=== PATIENT | male | born 1950 | race Caucasian/White ===

== ENCOUNTER 2021-01-02 20:53 | Emergency (ER) | payer MEDICARE ==
[2021-01-02] MEDS ORDERED: Bacitracin Oint 1 GM U/D Packet TOP ONE (21:05)
--- NOTE | 2021-01-02 21:35 | EDM.PDOC ---
ED HPI GENERAL MEDICAL PROBLEM - General Chief Complaint: Upper Extremity Injury/Pain Stated Complaint: FISH HOOK Time Seen by Provider: 01/02/21 21:04 Source of Information: Reports: Patient History Limitations: Reports: No Limitations - History of Present Illness INITIAL COMMENTS - FREE TEXT/NARRATIVE: chief complaint: fish hook to the right hand This is a 70 year old male presents to the ER for fish hook removal. [place] it jerked and fish hook got stuck on the right hand. left hand got a puncture from the hook. no other injuries noted Td up to date Onset: Today Duration: Hour(s): Location: Reports: Upper Extremity, Right Quality: Reports: Burning Severity: Mild Improves with: Reports: Immobilization Worsens with: Reports: Movement Context: Reports: Other (man vs fish) Associated Symptoms: Reports: No Other Symptoms Treatments EMERGENCY PHYSICIAN: Reports: Home Treatments Right Hand Pain Score (Numeric/FACES): 4 - Related Data Allergies Allergy/AdvReac Type Severity Reaction Status Date / Time No Known Allergies Allergy Verified 01/02/21 21:40 Home Meds: Home Meds Metoprolol Succinate 1 tab PO DAILY 01/02/21 [History] Triamterene 1 tab PO DAILY 01/02/21 [History] Review of Systems - Review of Systems Review Of Systems: See Below Constitutional: Reports: No Symptoms Musculoskeletal: Reports: Hand Pain Skin: Reports: Other (fish hook to the right hand) ED EXAM, GENERAL - Physical Exam Exam: See Below Exam Limited By: No Limitations General Appearance: Alert, WD/WN, No Apparent Distress, Other (neat and well groomed. pleasant and very polite adult male.) Neurological: No Motor/Sensory Deficits Psychiatric: Normal Affect, Normal Mood Skin Exam: Other (puncture wound to the left hand- superficial. fish hook noted to right hand) Lymphatic: No Adenopathy ED TRAUMA EXTREMITY PROCEDURES - Foreign Body Removal Indication:: fish hook noted to the right hand Consent Obtained: Patient Performing Doctor:: Kim Kothari Foreign Body Other Location Comment:: fish hook - single prong to the right hand Anesthesia Type: Local Complications:: No Comments:: cleansed injection area around the fish hook with Lidocaine 1% without eppi clamp prong of fish hook with forceps and removed without difficulty washed hands applied bacitracin and bandage. Mr. Faust tolerated removal without any complications Course - Vital Signs Last Recorded V/S: Last Vital Signs Temp 97.5 F 01/02/21 21:24 Pulse 61 01/02/21 21:24 Resp 20 01/02/21 21:24 BP 179/92 H 01/02/21 21:24 Pulse Ox 95 01/02/21 21:24 - Orders/Labs/Meds Meds: Medications Discontinued Medications Generic Name Dose Route Start Last Admin Trade Name Mary Anne PRN Reason Stop Dose Admin Bacitracin 1 dose 01/02/21 21:05 01/02/21 21:34 Bacitracin Oint 1 Gm U/D Packet TOP 01/02/21 21:06 1 dose ONETIME ONE Administration Lidocaine HCl 5 ml 01/02/21 21:05 01/02/21 21:34 Lidocaine 1% 5 Ml Sdv INJECT 01/02/21 21:06 5 ml ONETIME ONE Administration Departure - Departure Time of Disposition: 21:31 Disposition: Home, Self-Care 01 Condition: Good Clinical Impression: Fish hook injury of right hand Qualifiers: Encounter type: initial encounter Qualified Code(s): S69.91XA - Unspecified injury of right wrist, hand and finger(s), initial encounter Puncture wound of hand Qualifiers: Encounter type: initial encounter Laterality: unspecified laterality - Discharge Information *PRESCRIPTION DRUG MONITORING PROGRAM REVIEWED*: Not Applicable *COPY OF PRESCRIPTION DRUG MONITORING REPORT IN PATIENT [place]: Not Applicable Instructions: Puncture Wound, [id number] Referrals: PCP,None [Primary Care Provider] - Forms: ED Department Discharge Care Plan Goals: Fish hook - puncture wound to right hand -apply bacitracin ointment to wound two times a day for 2-3 days -monitor for signs of infection- redness, pain, increased drainage, fever, chills or not healing -return to ER for any signs of infection or has any concerns Sepsis Event Note (ED) - Evaluation Sepsis Screening Result: No Definite Risk - Focused Exam Vital Signs: Vital Signs Temp Pulse Resp BP Pulse Ox 01/02/21 21:24 97.5 F 61 20 179/92 H 95 01/02/21 21:07 97.5 F 61 20 179/92 H 95 - Problem List & Annotations (1) Fish hook injury of right hand SNOMED Code(s): 38475965437508772 Code(s): S69.91XA - UNSP INJURY OF RIGHT WRIST, HAND AND FINGER(S), INIT ENCNTR Status: Acute Priority: High Qualifiers: Encounter type: initial encounter Qualified Code(s): S69.91XA - Unspecified injury of right wrist, hand and finger(s), initial encounter (2) Puncture wound of hand SNOMED Code(s): 097185455 Code(s): S61.439A - PUNCTURE WOUND W/O FOREIGN BODY OF UNSP HAND, INIT ENCNTR Status: Acute Priority: High Qualifiers: Encounter type: initial encounter Laterality: unspecified laterality - Problem List Review Problem List Initiated/Reviewed/Updated: Yes - Assessment/Plan Plan: Fish hook - puncture wound to right hand -apply bacitracin ointment to wound two times a day for 2-3 days -monitor for signs of infection- redness, pain, increased drainage, fever, chills or not healing -return to ER for any signs of infection or has any concerns
== END 2021-01-02 21:47 | disposition home or self-care (01) ==
LOC: JP.ED 20:53
DX: S61.441A Puncture wound with foreign body of right hand, initial encounter (principal); W45.8XXA Other foreign body or object entering through skin, initial encounter
CPT/HCPCS: 99283